=== PATIENT | male | born 1965 | race Caucasian/White ===

== ENCOUNTER → 2017-03-16 | Outpatient (CLI) | payer BC ==
--- NOTE | 2017-03-16 20:42 | MR ---
EXAMINATION TYPE: MR brain wo con DATE OF EXAM: 03/16/2017 COMPARISON: NONE HISTORY: Memory loss, TIA, hx CVA T1-weighted sagittal, T2, FLAIR, and diffusion axial, and T2 coronal coronal views of the brain are s ubmitted. There is no evidence of acute ischemia. The ventricles, basal cisterns, and sulci overlying the conv exities are consistent with the patient's age. There is no mass effect. Craniocervical junction maintained. Sella turcica has a normal appearance. No cerebellopontine angle mass. Changes of chronic sinusitis noted. Area of abnormal signal in the left parietal lobe predominantly involving the cortex suggestive of an area of encephalomalacia in previous ischemia. White matter: There are a few scattered areas of abnormal signal the white matter which are nonspecif ic. IMPRESSION: 1.. Abnormal signal involving the left parietal cortex compatible with encephalomalacia most suggesti ve of remote stroke. 2. Scattered nonspecific white matter areas of signal all measuring less than 5 mm. May been the basis of hypertension, remote microvascular ischemia, or migraine headaches. Demyeli nating process not entirely excluded. 3. Chronic sinusitis. 4. There is a 4 mm area of mixed signal right parietal white matter axial image 23. Small cavernous a ngioma within the differential diagnosis.. Consider contrast-enhanced MRI.
== END | disposition home or self-care (01) ==
LOC: RADMRIMAIN 19:24
PROVIDERS: ATTEND Psychiatry & Neurology Neurology
DX: R94.02 Abnormal brain scan (principal); I69.828 Other speech and language deficits following other cerebrovascular disease; R41.3 Other amnesia
CPT/HCPCS: 70551

== ENCOUNTER → 2017-04-06 | Outpatient (CLI) | payer BC ==
--- NOTE | 2017-04-06 21:15 | MR ---
EXAMINATION TYPE: MR brain w con DATE OF EXAM: 04/06/2017 COMPARISON: Noncontrast MRI 03/16/2017 HISTORY: 51 year-old male history of CVA, memory loss TECHNIQUE: Multiplanar, multisequence images of the brain and brainstem were acquired after administ ration of 8.0 mL IV Gadavist. Diffusion weighted imaging is performed. FINDINGS: The ventricles and sulci are age-appropriate. No mass effect, midline shift, herniation, effacement o f basal cisterns, or extra-axial fluid collection is identified. Only postcontrast sequences were acquired. Redemonstrated 4 mm low signal focus within the subcortical region of the right parietal lobe. There may be a punctate focus of associated enhancement. No developmental venous anomaly is identified in t his vicinity. No abnormal enhancement seen along the left lateral parietal convexity in the region of known encepha lomalacia and gliosis seen on noncontrast MRI. Post contrast images otherwise demonstrate no evidence of pathologic enhancement. Dural venous sinus es are patent. Mucosal retention cyst within the medial left maxillary sinus and mucosal thickening floor of the rig ht maxillary sinus. Globes are intact. IMPRESSION: 1. Findings suggest a tiny 4 mm cavernous hemangioma in the right parietal lobe. No associated develo pmental venous anomaly. No other abnormal enhancement seen. 2. The area of encephalomalacia and gliosis along the left parietal convexity could reflect a site of prior vascular or traumatic insult. No associated enhancement. Findings compatible with remote injur y. 3. Mild chronic paranasal sinus disease.
== END | disposition home or self-care (01) ==
LOC: RADMRIMAIN 18:10
PROVIDERS: ATTEND Psychiatry & Neurology Neurology
DX: G93.89 Other specified disorders of brain (principal)
CPT/HCPCS: 70552; A9581